=== PATIENT | male | born 1950 | race Caucasian/White ===

== ENCOUNTER 2024-09-08 10:14 | Observation (INO) | payer MEDICARE ==
--- NOTE | 2024-09-08 10:18 | ERPHSYRPT ---
- History of Present Illness Time Seen by Provider: 09/08/24 10:18 Source: patient, family Exam Limitations: no limitations Physician History: This is an obese 74-year-old white male patient of Dr. Baker who presents by private vehicle directly from his primary care physician's office because of concern of pneumonia. Patient arrives by private vehicle with a room air oxygen saturation level of 82%. Immediately, he was placed on supplemental oxygen via nasal cannula and respiratory therapy was consulted. They will be providing him with DuoNeb treatment. Patient has been receiving antibiotic therapy as an outpatient without benefit. I reviewed the office's notes (out side PCP) from today from Dr. Baker's office. The patient has a history of seasonal all ergies, COPD. He is a former smoker of tobacco cigarettes but no longer smokes tobacco. He has no known drug allergies. Patient does have a history of hypertension. He has no documented coronary artery disease and no documented history of congestive heart failure. The patient is not diabetic Timing/Duration: day(s) (5 to 6 days), worse Severity: moderate Associated Symptoms: shortness of breath, weakness, No chest pain Allergies/Adverse Reactions: No Known Drug Allergies Allergy (Verified 09/08/24 10:30) Home Medications: Albuterol 2.5 mg/3 ml Neb [Proventil 2.5 mg/3 ml Neb] 2 puffs PO Q46H 09/08/24 [History] Carvedilol 12.5 mg [Coreg 12.5 mg] 12.5 mg PO BID 09/08/24 [History] Losartan/Hydrochlorothiazide [Losartan-Hctz 50-12.5 mg Tab] 1 tab PO DAILY 09/08/24 [History] Travel Risk - International Travel Have you traveled outside of the country in past 3 weeks: No - Emerging Infectious Disease Are you exhibiting symptoms associated with any current EIDs: Yes Symptoms: Shortness of Breath - Review of Systems Constitutional: Weakness Eyes: No Symptoms Ears, Nose, & Throat: No Symptoms Respiratory: Dyspnea Cardiac: No Symptoms Abdominal/Gastrointestinal: No Symptoms Musculoskeletal: No Symptoms Skin: No Symptoms Neurological: No Symptoms Psychological: No Symptoms Endocrine: No Symptoms Hematologic/Lymphatic: No Symptoms Immunological/Allergic: No Symptoms All Other Systems: Reviewed and Negative - Past Medical History Pertinent Past Medical History: Yes - Nursing Vital Signs Nursing Vital Signs: Initial Vital Signs O2 Sat by Pulse Oximetry 83 L 09/08/24 10:20 Pain Scale Pain Intensity 0 - Physical Exam General Appearance: mild distress, alert, anxiety, obese Eye Exam: PERRL/EOMI, eyes nml inspection Ears, Nose, Throat Exam: normal ENT inspection, moist mucous membranes Neck Exam: normal inspection, non-tender, supple, full range of motion Respiratory Exam: lungs clear, respiratory distress, airway intact, diminished breath sounds (Laterally and diffuse), No chest tenderness Cardiovascular Exam: regular rate/rhythm, normal heart sounds, normal peripheral pulses Gastrointestinal/Abdomen Exam: soft, normal bowel sounds, No tenderness Rectal Exam: not done Back Exam: normal inspection, normal range of motion, No CVA tenderness, No vertebral tenderness Extremity Exam: normal inspection, normal range of motion, pelvis stable Neurologic Exam: alert, oriented x 3, cooperative, snapper on II-XII nml as tested, nml cerebellar function, nml station & gait, sensation nml Skin Exam: normal color, warm, dry Lymphatic Exam: No adenopathy SpO2 Interpretation: hypoxic O2 Delivery: Room Air - Course Nursing assessment & vital signs reviewed: Yes EKG Interpreted by Me: RATE (69), NORMAL AXIS, NORMAL QRS, Other (Short NV interval. QTc is 470. No acute ischemia on today's twelve-lead EKG.) Ordered Tests: Active Orders 24 hr Category Date Time Status Clay Preparation Supervisor STAT Care 09/08/24 10:29 Active EKG-ER Only STAT Care 09/08/24 10:28 Active IV Insertion STAT Care 09/08/24 10:28 Active Oxygen-ED Only Nasal Cannula 4 lpm Care 09/08/24 10:28 Active CHEST 1 VIEW (PORTABLE) Stat Exams 09/08/24 10:29 Completed BLOOD CULTURE Stat Lab 09/08/24 11:08 Received CBC W DIFF Stat Lab 09/08/24 11:02 Completed CMP Stat Lab 09/08/24 11:02 Completed Lactic Acid Stat Lab 09/08/24 10:28 Ordered MAGNESIUM Stat Lab 09/08/24 11:02 Completed Manual Differential NC Stat Lab 09/08/24 11:02 Completed NT PRO BNPII Stat Lab 09/08/24 11:02 Completed TROPONIN Q4H Lab 09/08/24 11:02 Completed TROPONIN Q4H Lab 09/08/24 14:30 Ordered TROPONIN Q4H Lab 09/08/24 18:30 Ordered Respiratory Therapy Assessment DAILY RT 09/08/24 10:30 Active Medication Summary Discontinued Medications Generic Name Dose Route Start Last Admin Trade Name Mireille PRN Reason Stop Dose Admin Albuterol/Ipratropium Confirm 09/08/24 10:26 Ipratropium/Albuterol Sulfate 3 Ml Ampul.Neb Administered 09/08/24 10:27 Dose 3 ml IH .STK-MED ONE Albuterol/Ipratropium 3 ml 09/08/24 10:29 09/08/24 10:31 Ipratropium/Albuterol Sulfate 3 Ml Ampul.Neb IH 09/08/24 10:30 3 ml STAT ONE Administration Methylprednisolone Sodium 0 mg 09/08/24 10:28 09/08/24 11:27 Succinate 125 mg/ Sterile IV 09/08/24 10:29 125 mg Water 2 ml STAT ONE Administration Ceftriaxone Sodium 1 gm in 100 mls @ 200 mls/hr 09/08/24 11:35 09/08/24 12:40 Rocephin 1 Gm / 100 Ml Nacl IV 09/08/24 12:04 Infused STAT ONE Infusion Ceftriaxone Sodium Confirm 09/08/24 11:48 Rocephin 1 Gm / 100 Ml Nacl Administered 09/08/24 11:49 Dose 1 gm in 100 mls @ ud IV .STK-MED ONE Methylprednisolone Sodium Succinate Confirm 09/08/24 11:26 Methylprednis Sod Succ 125 Mg/2 Ml Vial Administered 09/08/24 11:27 Dose 125 mg .ROUTE .STK-MED ONE Potassium Chloride 20 meq 09/08/24 12:40 Potassium Chloride Tab 10 Meq Tab PO 09/08/24 12:41 STAT ONE Sterile Water Confirm 09/08/24 11:26 Water For Injection,Sterile 10 Ml Vial Administered 09/08/24 11:27 Dose 10 ml IJ .STK-MED ONE Lab/Rad Data: Laboratory Result Diagrams 09/08/24 11:02 09/08/24 11:02 Laboratory Results 09/08/24 09/08/24 09/08/24 Range/Units 11:02 11:02 11:02 WBC 5.1 (4.23-9.07) x10^3/uL RBC 4.85 (4.63-6.08) x10^6/uL Hgb 14.5 (13.7-17.5) g/dL Hct 44.8 (40.1-51.0) % MCV 92.4 H (79.0-92.2) fL MCH 29.9 (25.7-32.2) pg MCHC 32.4 (32.3-36.5) g/dL RDW 13.4 (11.6-14.4) % Plt Count 190 (163-337) x10^3/uL MPV 9.7 (9.4-12.4) fL Segmented Neutrophils 74 H (34.0-67.9) % Lymphocytes (Manual) 17 L (21.8-53.1) % Monocytes (Manual) 7 (5.3-12.2) % Eosinophils (Manual) 2 (0.8-7.0) % Platelet Estimate NORMAL (NORMAL) RBC Morphology NORMAL Sodium 140 (135-145) mmol/L Potassium 3.3 L (3.5-5.1) mmol/L Chloride 99 (98-107) mmol/L Carbon Dioxide 32 H (22-30) mmol/L Anion Gap 12.2 (5-15) MEQ/L BUN 17 (9-20) mg/dL Creatinine 0.67 (0.66-1.25) mg/dL Estimated GFR 99.2 ML/MIN Glucose 111 H (74-106) mg/dL Calcium 9.0 (8.4-10.2) mg/dL Magnesium 2.0 (1.6-2.3) mg/dL Total Bilirubin 0.80 (0.2-1.3) mg/dL AST 44 (17-59) U/L ALT 32 (0-50) U/L Alkaline Phosphatase 56 (38-126) U/L Troponin I < 0.012 (0.000-0.033) ng/mL NT-Pro-B Natriuret Pep 27.4 (<300) pg/mL Serum Total Protein 7.4 (6.3-8.2) g/dL Albumin 4.2 (3.5-5.0) g/dL Influenza Type A Ag (NEGATIVE) Influenza Type B Ag (NEGATIVE) RSV (PCR) (NEGATIVE) SARS-CoV-2 (PCR) (NEGATIVE) 09/08/24 Range/Units 11:00 WBC (4.23-9.07) x10^3/uL RBC (4.63-6.08) x10^6/uL Hgb (13.7-17.5) g/dL Hct (40.1-51.0) % MCV (79.0-92.2) fL MCH (25.7-32.2) pg MCHC (32.3-36.5) g/dL RDW (11.6-14.4) % Plt Count (163-337) x10^3/uL MPV (9.4-12.4) fL Segmented Neutrophils (34.0-67.9) % Lymphocytes (Manual) (21.8-53.1) % Monocytes (Manual) (5.3-12.2) % Eosinophils (Manual) (0.8-7.0) % Platelet Estimate (NORMAL) RBC Morphology Sodium (135-145) mmol/L Potassium (3.5-5.1) mmol/L Chloride (98-107) mmol/L Carbon Dioxide (22-30) mmol/L Anion Gap (5-15) MEQ/L BUN (9-20) mg/dL Creatinine (0.66-1.25) mg/dL Estimated GFR ML/MIN Glucose (74-106) mg/dL Calcium (8.4-10.2) mg/dL Magnesium (1.6-2.3) mg/dL Total Bilirubin (0.2-1.3) mg/dL AST (17-59) U/L ALT (0-50) U/L Alkaline Phosphatase (38-126) U/L Troponin I (0.000-0.033) ng/mL NT-Pro-B Natriuret Pep (<300) pg/mL Serum Total Protein (6.3-8.2) g/dL Albumin (3.5-5.0) g/dL Influenza Type A Ag NEGATIVE (NEGATIVE) Influenza Type B Ag NEGATIVE (NEGATIVE) RSV (PCR) NEGATIVE (NEGATIVE) SARS-CoV-2 (PCR) NEGATIVE (NEGATIVE) - Progress Progress: improved, re-examined Progress Note: 09/08/24 10:37 My medical decision making and the assignment of at least moderate complexity and possible high complexity is based on review of the patient's past medical history, review of the patient's medication list, review of the patient's history present illness and physical findings on examination. We also reviewed the patient's drug allergy list. The workup of this patient includes placement of intravenous line, placement of supplemental oxygen via nasal cannula, respiratory therapist evaluation and management, intravenous Solu-Medrol, CBC, CMP, troponin level, BNP level, twelve-lead EKG, viral swabs, monotest, chest x- ray. Differential diagnosis includes but is not limited to upper respiratory infection, pneumonia, viral illness, COPD exacerbation, CHF exacerbation, myocardial infarction, arrhythmias 09/08/24 11:22 Chest x-ray was interpreted by the radiologist and I reviewed the impression. The impression states mild, bibasilar infiltrates, atelectasis and effusions. 09/08/24 12:44 I interpreted the patient's laboratory data results. Based on the laboratory data results there are no acute, emergent medical issues. I did speak with Dr. Noyola. I reviewed the patient history, presenting complaint, physical findings on examination and workup results. The patient will be placed in observation and we will provide the patient with respiratory therapy treatments, intravenous antibiotics if indicated, repeat labs and repeat EKG. Counseled pt/family regarding: lab results, diagnosis, rad results Medical Desision Making - Discussion of managment Care discussed with:: hospitalist Reviewed:: Test results, Need for additional workup - Diagnostic Testing Diagnostic test were ordered, analyzed, and reviewed by me: Yes Radiological Interpretation: Reviewed by me, Teleradiologist Report - Risk of complications The pt has a high risk of morbidity or mortality based on: Decision regarding hospitilization or escalation of hosp level of care - Departure Departure Disposition: Observation Clinical Impression: Bilateral pulmonary infiltrates, Hypokalemia, Hypoxia Condition: Fair Critical Care Time: Yes Critical Care Time(excluding separately billable procedures): Critical 30-74 mins (45) Referrals: DENISSE BAKER MD [Primary Care Provider] - Follow up/PCP as directed
[2024-09-08] MEDS ORDERED: DUONEB 0.5-3 MG/3 ml Neb IH ONE (10:26)
[2024-09-08] MEDS: DUONEB 0.5-3 MG/3 ml Neb IH ONE (10:31)
--- NOTE | 2024-09-08 11:00 | XRAY ---
Indication: Short of breath. Hypoxia. Comparison: None Portable chest demonstrates mild bibasilar infiltrates/atelectasis/effusions. Upper lungs clear. Heart not enlarged. Bony thorax intact with osteopenia and mild degenerative changes.
[2024-09-08 11:15] LABS: Hematocrit 44.8 % (40.1-51.0); Hemoglobin 14.5 g/dL (13.7-17.5); Mean Cell Volume 92.4 fL (79.0-92.2); Mean Corpuscular Hemoglobin 29.9 pg (25.7-32.2); Mean Corpuscular Hgb Concent. 32.4 g/dL (32.3-36.5); Mean Platelet Volume 9.7 fL (9.4-12.4); Platelet Count 190 x10^3/uL (163-337); Red Blood Count 4.85 x10^6/uL (4.63-6.08); Red Cell Distribution Width 13.4 % (11.6-14.4); White Blood Count 5.1 x10^3/uL (4.23-9.07)
[2024-09-08] MEDS ORDERED: Sterile H2O 10 ml IJ ONE (11:26)
[2024-09-08] MEDS ORDERED: solu-MEDROL ONE (11:26)
[2024-09-08] MEDS: solu-MEDROL 125 MG, Sterile H2O 10 ml 2 ML IV ONE (11:27)
[2024-09-08 11:40] LABS: NT PRO BNPII 27.4 pg/mL (<300)
[2024-09-08 11:42] LABS: ALBUMIN 4.2 g/dL (3.5-5.0); ALKALINE PHOSPHATASE 56 U/L (38-126); ANION GAP 12.2 MEQ/L (5-15); BLOOD UREA NITROGEN 17 mg/dL (9-20); CHLORIDE 99 mmol/L (98-107); Carbon Dioxide 32 mmol/L (22-30); Creatinine 1 0.67 mg/dL (0.66-1.25); EST GLOMERULAR FILTRATION RATE 99.2 ML/MIN; Glucose 111 mg/dL (74-106); Potassium 3.3 mmol/L (3.5-5.1); SGOT/AST 44 U/L (17-59); SGPT/ALT 32 U/L (0-50); SODIUM 140 mmol/L (135-145); TROPONIN < 0.012 ng/mL (0.000-0.033); Total Protein 7.4 g/dL (6.3-8.2)
[2024-09-08] MEDS ORDERED: ROCEPHIN 1 GM / 100 ML NaCl 1 GM/100 ML IVPB IV ONE (11:48)
[2024-09-08] MEDS: ROCEPHIN 1 GM / 100 ML NaCl 1 GM/100 ML IVPB IV ONE (11:49)
[2024-09-08 11:51] LABS: INFLUENZA A NEGATIVE (NEGATIVE); INFLUENZA B NEGATIVE (NEGATIVE); RESPIRATORY SYNCTIAL VIRUS NEGATIVE (NEGATIVE); SARS-CoV-2 Xpert Express NEGATIVE (NEGATIVE)
[2024-09-08 12:41] LABS: Eosinophil 2 % (0.8-7.0); Lymphocytes 17 % (21.8-53.1); Monocyte 7 % (5.3-12.2); Neutrophils 74 % (34.0-67.9); Platelet Estimate NORMAL (NORMAL)
[2024-09-08 12:42] LABS: Total Cells Counted 100
[2024-09-08] MEDS ORDERED: Klor Con ONE (12:51)
[2024-09-08] MEDS: Klor Con PO ONE (12:54)
[2024-09-08] MEDS ORDERED: Zofran 4 MG/2 ML VIAL IV PRN (14:09)
[2024-09-08] MEDS ORDERED: TYLENOL 325 MG PO PRN (14:09)
--- NOTE | 2024-09-08 14:47 | PCM.HP ---
History of Present Illness - Chief Complaint Chief Complaint: pneuomia Date: 09/08/24 History of Present Illness: is a 74 year old male with a pmhx of COPD, HTN, and HLD who presented to the ED for evaluation of shortness of breath. Patient reports he has been sick over the past week with a productive cough with green sputum and progressive shortness of breath. He was under the care of his PCP Dr. Roche receiving oral antibiotic with no improvement. Denies fever, cp, abdominal pain, [place], dizziness, N/V/D. Upon arrival to ED patient was hypoxic with spo2 at 83% on arrival. Patient placed on 4L of oxygen. EKG NS with no ST elevation/deviations. CXR with bilateral infiltrates. Lab findings remarkable for hypokalemia. Patient received solumedrol, duonebs, rocephin and potassium in ED. Admit for acute respiratory failure secondary to pneumonia. - Review of Systems Constitutional: No Symptoms Eyes: No Symptoms Ears, Nose, & Throat: No Symptoms Respiratory: Cough, Short Of Breath, Wheezing Cardiac: No Symptoms Abdominal/Gastrointestinal: No Symptoms Genitourinary Symptoms: No Symptoms Musculoskeletal: No Symptoms Skin: No Symptoms Neurological: No Symptoms Psychological: No Symptoms Endocrine: No Symptoms Hematologic/Lymphatic: No Symptoms Immunological/Allergic: No Symptoms Medications & Allergies Home Medications: Home Medication List Albuterol 2.5 mg/3 ml Neb [Proventil 2.5 mg/3 ml Neb] 2 puffs PO Q46H 09/08/24 [History Confirmed 09/08/24] Carvedilol 12.5 mg [Coreg 12.5 mg] 12.5 mg PO BID 09/08/24 [History Confirmed 09/08/24] Losartan/Hydrochlorothiazide [Losartan-Hctz 50-12.5 mg Tab] 1 tab PO DAILY 09/08/24 [History Confirmed 09/08/24] Allergies/Adverse Reactions: Allergies Allergy/AdvReac Type Severity Reaction Status Date / Time No Known Drug Allergies Allergy Verified 09/08/24 10:30 - Past Medical History Past Medical History: Yes Cardiac History: Hypertension Respiratory History: COPD - Past Surgical History Past Surgical History: Yes GI Surgical History: Cholecystectomy Other Surgical History: kidney stone Significant Family History: diabetes - Social History Smoking Status: Former smoker Exposure to second hand smoke: No Alcohol: None Drug Use: none - Social Determinants of Health Will the patient participate in the screening: Yes Do you worry about a steady place to live?: No Do you have any problems with any of the following?: No known problems In the past 12 months,have you had to go without utilities?: No Have you or anyone in your house had to go without enough: No Transportation Issues: No Has anyone in your support network made you feel unsafe?: No - Physical Exam Vital Signs: Vital Signs - 24 hr Temp Pulse Resp BP BP Pulse Ox 09/08/24 14:09 97.6 F 59 L 16 155/73 95 09/08/24 13:00 62 18 110/59 97 09/08/24 12:30 114/67 97 09/08/24 12:00 104/64 96 09/08/24 11:47 110/67 96 09/08/24 11:40 90 L 09/08/24 11:30 89 L 09/08/24 11:20 89 L 09/08/24 11:10 90 L 09/08/24 11:01 90 L 09/08/24 10:32 119/66 88 L 09/08/24 10:31 77 22 98 09/08/24 10:23 71 132/70 132/70 98 09/08/24 10:20 83 L General Appearance: no apparent distress Neurologic Exam: alert, oriented x 3, cooperative Eye Exam: PERRL/EOMI Ears, Nose, Throat Exam: normal ENT inspection Neck Exam: normal inspection Respiratory Exam: diminished breath sounds, wheezing Cardiovascular Exam: regular rate/rhythm, normal heart sounds Gastrointestinal/Abdomen Exam: soft, normal bowel sounds Rectal Exam: deferred Back Exam: normal inspection Extremity Exam: normal inspection Skin Exam: normal color Results - Labs Lab/Micro Results: Lab Results-Last 24 Hours 09/08/24 09/08/24 09/08/24 Range/Units 11:00 11:02 11:02 WBC 5.1 (4.23-9.07) x10^3/uL RBC 4.85 (4.63-6.08) x10^6/uL Hgb 14.5 (13.7-17.5) g/dL Hct 44.8 (40.1-51.0) % MCV 92.4 H (79.0-92.2) fL MCH 29.9 (25.7-32.2) pg MCHC 32.4 (32.3-36.5) g/dL RDW 13.4 (11.6-14.4) % Plt Count 190 (163-337) x10^3/uL MPV 9.7 (9.4-12.4) fL Segmented Neutrophils 74 H (34.0-67.9) % Lymphocytes (Manual) 17 L (21.8-53.1) % Monocytes (Manual) 7 (5.3-12.2) % Eosinophils (Manual) 2 (0.8-7.0) % Platelet Estimate NORMAL (NORMAL) RBC Morphology NORMAL Sodium (135-145) mmol/L Potassium (3.5-5.1) mmol/L Chloride (98-107) mmol/L Carbon Dioxide (22-30) mmol/L Anion Gap (5-15) MEQ/L BUN (9-20) mg/dL Creatinine (0.66-1.25) mg/dL Estimated GFR ML/MIN Glucose (74-106) mg/dL Calcium (8.4-10.2) mg/dL Magnesium 2.0 (1.6-2.3) mg/dL Total Bilirubin (0.2-1.3) mg/dL AST (17-59) U/L ALT (0-50) U/L Alkaline Phosphatase (38-126) U/L Troponin I (0.000-0.033) ng/mL NT-Pro-B Natriuret Pep 27.4 (<300) pg/mL Serum Total Protein (6.3-8.2) g/dL Albumin (3.5-5.0) g/dL Influenza Type A Ag NEGATIVE (NEGATIVE) Influenza Type B Ag NEGATIVE (NEGATIVE) RSV (PCR) NEGATIVE (NEGATIVE) SARS-CoV-2 (PCR) NEGATIVE (NEGATIVE) 09/08/24 Range/Units 11:02 WBC (4.23-9.07) x10^3/uL RBC (4.63-6.08) x10^6/uL Hgb (13.7-17.5) g/dL Hct (40.1-51.0) % MCV (79.0-92.2) fL MCH (25.7-32.2) pg MCHC (32.3-36.5) g/dL RDW (11.6-14.4) % Plt Count (163-337) x10^3/uL MPV (9.4-12.4) fL Segmented Neutrophils (34.0-67.9) % Lymphocytes (Manual) (21.8-53.1) % Monocytes (Manual) (5.3-12.2) % Eosinophils (Manual) (0.8-7.0) % Platelet Estimate (NORMAL) RBC Morphology Sodium 140 (135-145) mmol/L Potassium 3.3 L (3.5-5.1) mmol/L Chloride 99 (98-107) mmol/L Carbon Dioxide 32 H (22-30) mmol/L Anion Gap 12.2 (5-15) MEQ/L BUN 17 (9-20) mg/dL Creatinine 0.67 (0.66-1.25) mg/dL Estimated GFR 99.2 ML/MIN Glucose 111 H (74-106) mg/dL Calcium 9.0 (8.4-10.2) mg/dL Magnesium (1.6-2.3) mg/dL Total Bilirubin 0.80 (0.2-1.3) mg/dL AST 44 (17-59) U/L ALT 32 (0-50) U/L Alkaline Phosphatase 56 (38-126) U/L Troponin I < 0.012 (0.000-0.033) ng/mL NT-Pro-B Natriuret Pep (<300) pg/mL Serum Total Protein 7.4 (6.3-8.2) g/dL Albumin 4.2 (3.5-5.0) g/dL Influenza Type A Ag (NEGATIVE) Influenza Type B Ag (NEGATIVE) RSV (PCR) (NEGATIVE) SARS-CoV-2 (PCR) (NEGATIVE) - Radiology Impressions Radiology Exams & Impressions: Radiology Procedures Category Date Time Status CHEST 1 VIEW (PORTABLE) Stat Exams 09/08/24 10:29 Completed - Other Procedures and Tests Respiratory Therapy 09/08/24 14:09 EKG REPEAT IN AM Oxygen Nasal Cannula 2 lpm Respiratory Therapy Consult ONCE Assessment/Plan (1) Pneumonia Current Visit: Yes Status: Acute Assessment & Plan: -cxr reviewed with bilateral infiltrates -Supplemental oxygen with goal spo2 >91% - currently on 4L -Solu-medrol 40mg BID -RT eval -DuoNebs -Ceftriaxone/azithromycin -WBC reviewed and WNL - trend -sputum culture Code(s): J18.9 - PNEUMONIA, UNSPECIFIED ORGANISM (2) Acute respiratory failure with hypoxia Current Visit: Yes Status: Acute Assessment & Plan: -see pneumonia above Code(s): J96.01 - ACUTE RESPIRATORY FAILURE WITH HYPOXIA (3) COPD exacerbation Current Visit: Yes Status: Acute Assessment & Plan: -see pneumonia above -continue home meds Code(s): J44.1 - CHRONIC OBSTRUCTIVE PULMONARY DISEASE W (ACUTE) EXACERBATION (4) Hypokalemia Current Visit: Yes Status: Acute Assessment & Plan: -Potassium reviewed at 3.3- 40meq given in ED -will recheck -tele -Monitor renal/lytes daily Code(s): E87.6 - HYPOKALEMIA (5) HTN (hypertension) Current Visit: Yes Status: Acute Assessment & Plan: -BP stable- continue home meds Code(s): I10 - ESSENTIAL (PRIMARY) HYPERTENSION (6) HLD (hyperlipidemia) Current Visit: Yes Status: Acute Assessment & Plan: -continue home regimen VTE: lovenox PPI: Protonix Dispo: 1-2 days Code(s): E78.5 - HYPERLIPIDEMIA, UNSPECIFIED
[2024-09-08] MEDS ORDERED: PROVENTIL 2.5 MG/3 ML NEB IH PRN ×2 (15:00→15:14)
[2024-09-08] MEDS: Zithromax 500 MG/ 250 ML NaCl Premix 500 MG/250 ML IVPB IV SCH (16:13)
[2024-09-08] MEDS: DUONEB 0.5-3 MG/3 ml Neb IH SCH (18:40)
[2024-09-08] MEDS: COREG 12.5 MG PO SCH (22:23)
--- NOTE | 2024-09-09 05:22 | PCM.NOTE ---
Date and Time: 09/09/24520 Subjective Assessment: is a 74 year old male with a pmhx of COPD, HTN, and HLD who presented to the ED for evaluation of shortness of breath. Patient reports he has been sick over the past week with a productive cough with green sputum and progressive shortness of breath. He was under the care of his PCP Dr. Roche receiving oral antibiotic with no improvement. Denies fever, cp, abdominal pain, BULLOCK, dizziness, N/V/D. Upon arrival to ED patient was hypoxic with spo2 at 83% on arrival. Patient placed on 4L of oxygen. EKG NS with no ST elevation/deviations. CXR with bilateral infiltrates. Lab findings remarkable for hypokalemia. Patient received solumedrol, duonebs, rocephin and potassium in ED. Admit for acute respiratory failure secondary to pneumonia. Objective Data Vital Signs: Vital Signs - 24 hr Temp Pulse Resp BP BP Pulse Ox 09/09/24 04:00 97.3 F 72 18 119/66 95 09/08/24 23:52 97.8 F 70 18 112/56 94 L 09/08/24 20:00 97.5 F 84 21 101/59 93 L 09/08/24 18:40 85 18 91 L 09/08/24 16:14 97.6 F 59 L 16 155/73 96 09/08/24 15:57 69 18 94 L 09/08/24 15:48 69 18 94 L 09/08/24 14:09 97.6 F 59 L 16 155/73 95 09/08/24 13:00 62 18 110/59 97 09/08/24 12:30 114/67 97 09/08/24 12:00 104/64 96 09/08/24 11:47 110/67 96 09/08/24 11:40 90 L 09/08/24 11:30 89 L 09/08/24 11:20 89 L 09/08/24 11:10 90 L 09/08/24 11:01 90 L 09/08/24 10:32 119/66 88 L 09/08/24 10:31 77 22 98 09/08/24 10:23 71 132/70 132/70 98 09/08/24 10:20 83 L Pain Assessment - Last Documented Pain Intensity 0 Intake and Output: Intake & Output 09/06/24 09/07/24 09/08/24 09/09/24 11:59 11:59 11:59 11:59 Intake Total 1960 Balance 1959 Weight 117.934 kg 108.4 kg Lab Results: Lab Results-Last 24 Hours 09/08/24 09/08/24 09/08/24 Range/Units 11:00 11:02 11:02 WBC 5.1 (4.23-9.07) x10^3/uL RBC 4.85 (4.63-6.08) x10^6/uL Hgb 14.5 (13.7-17.5) g/dL Hct 44.8 (40.1-51.0) % MCV 92.4 H (79.0-92.2) fL MCH 29.9 (25.7-32.2) pg MCHC 32.4 (32.3-36.5) g/dL RDW 13.4 (11.6-14.4) % Plt Count 190 (163-337) x10^3/uL MPV 9.7 (9.4-12.4) fL Segmented Neutrophils 74 H (34.0-67.9) % Lymphocytes (Manual) 17 L (21.8-53.1) % Monocytes (Manual) 7 (5.3-12.2) % Eosinophils (Manual) 2 (0.8-7.0) % Platelet Estimate NORMAL (NORMAL) RBC Morphology NORMAL Sodium (135-145) mmol/L Potassium (3.5-5.1) mmol/L Chloride (98-107) mmol/L Carbon Dioxide (22-30) mmol/L Anion Gap (5-15) MEQ/L BUN (9-20) mg/dL Creatinine (0.66-1.25) mg/dL Estimated GFR ML/MIN Glucose (74-106) mg/dL Calcium (8.4-10.2) mg/dL Magnesium 2.0 (1.6-2.3) mg/dL Total Bilirubin (0.2-1.3) mg/dL AST (17-59) U/L ALT (0-50) U/L Alkaline Phosphatase (38-126) U/L Troponin I (0.000-0.033) ng/mL NT-Pro-B Natriuret Pep 27.4 (<300) pg/mL Serum Total Protein (6.3-8.2) g/dL Albumin (3.5-5.0) g/dL Influenza Type A Ag NEGATIVE (NEGATIVE) Influenza Type B Ag NEGATIVE (NEGATIVE) RSV (PCR) NEGATIVE (NEGATIVE) SARS-CoV-2 (PCR) NEGATIVE (NEGATIVE) 09/08/24 09/08/24 09/08/24 Range/Units 11:02 14:45 18:25 WBC (4.23-9.07) x10^3/uL RBC (4.63-6.08) x10^6/uL Hgb (13.7-17.5) g/dL Hct (40.1-51.0) % MCV (79.0-92.2) fL MCH (25.7-32.2) pg MCHC (32.3-36.5) g/dL RDW (11.6-14.4) % Plt Count (163-337) x10^3/uL MPV (9.4-12.4) fL Segmented Neutrophils (34.0-67.9) % Lymphocytes (Manual) (21.8-53.1) % Monocytes (Manual) (5.3-12.2) % Eosinophils (Manual) (0.8-7.0) % Platelet Estimate (NORMAL) RBC Morphology Sodium 140 (135-145) mmol/L Potassium 3.3 L (3.5-5.1) mmol/L Chloride 99 (98-107) mmol/L Carbon Dioxide 32 H (22-30) mmol/L Anion Gap 12.2 (5-15) MEQ/L BUN 17 (9-20) mg/dL Creatinine 0.67 (0.66-1.25) mg/dL Estimated GFR 99.2 ML/MIN Glucose 111 H (74-106) mg/dL Calcium 9.0 (8.4-10.2) mg/dL Magnesium (1.6-2.3) mg/dL Total Bilirubin 0.80 (0.2-1.3) mg/dL AST 44 (17-59) U/L ALT 32 (0-50) U/L Alkaline Phosphatase 56 (38-126) U/L Troponin I < 0.012 < 0.012 < 0.012 (0.000-0.033) ng/mL NT-Pro-B Natriuret Pep (<300) pg/mL Serum Total Protein 7.4 (6.3-8.2) g/dL Albumin 4.2 (3.5-5.0) g/dL Influenza Type A Ag (NEGATIVE) Influenza Type B Ag (NEGATIVE) RSV (PCR) (NEGATIVE) SARS-CoV-2 (PCR) (NEGATIVE) Radiology Exams: Radiology Procedures Category Date Time Status CHEST 1 VIEW (PORTABLE) Stat Exams 09/08/24 10:29 Completed Multi-Disciplinary Progress Notes: Multi-Disciplinary Progress Notes 09/09/24 01:35 Respiratory Note by Marie Zuniga RT at bedside for scheduled 1am tx. Pt states he is fine and does not wish to take neb tx at this time. Initialized on 09/09/24 01:35 - END OF NOTE Assessment/Plan (1) Pneumonia Current Visit: Yes Status: Acute Assessment & Plan: -cxr reviewed with bilateral infiltrates -Supplemental oxygen with goal spo2 >91% - currently on 4L -Solu-medrol 40mg BID -RT eval -DuoNebs -Ceftriaxone/azithromycin -WBC reviewed and WNL - trend -sputum culture Code(s): J18.9 - PNEUMONIA, UNSPECIFIED ORGANISM (2) Acute respiratory failure with hypoxia Current Visit: Yes Status: Acute Assessment & Plan: -see pneumonia above Code(s): J96.01 - ACUTE RESPIRATORY FAILURE WITH HYPOXIA (3) COPD exacerbation Current Visit: Yes Status: Acute Assessment & Plan: -see pneumonia above -continue home meds Code(s): J44.1 - CHRONIC OBSTRUCTIVE PULMONARY DISEASE W (ACUTE) EXACERBATION (4) Hypokalemia Current Visit: Yes Status: Acute Assessment & Plan: -Potassium reviewed at 3.3- 40meq given in ED -will recheck -tele -Monitor renal/lytes daily Code(s): E87.6 - HYPOKALEMIA (5) HTN (hypertension) Current Visit: Yes Status: Acute Assessment & Plan: -BP stable- continue home meds Code(s): I10 - ESSENTIAL (PRIMARY) HYPERTENSION (6) HLD (hyperlipidemia) Current Visit: Yes Status: Acute Assessment & Plan: -continue home regimen VTE: lovenox PPI: Protonix Dispo: 1-2 days Code(s): J18.9 - PNEUMONIA, UNSPECIFIED ORGANISM (2) Acute respiratory failure with hypoxia Current Visit: Yes Status: Acute Code(s): J96.01 - ACUTE RESPIRATORY FAILURE WITH HYPOXIA (3) COPD exacerbation Current Visit: Yes Status: Acute Code(s): J44.1 - CHRONIC OBSTRUCTIVE PULMONARY DISEASE W (ACUTE) EXACERBATION (4) Hypokalemia Current Visit: Yes Status: Acute Code(s): E87.6 - HYPOKALEMIA (5) HTN (hypertension) Current Visit: Yes Status: Acute Code(s): I10 - ESSENTIAL (PRIMARY) HYPERTENSION (6) HLD (hyperlipidemia) Current Visit: Yes Status: Acute Code(s): E78.5 - HYPERLIPIDEMIA, UNSPECIFIED
[2024-09-09 05:54] LABS: Hematocrit 42.5 % (40.1-51.0); Hemoglobin 13.4 g/dL (13.7-17.5); Mean Corpuscular Hemoglobin 29.3 pg (25.7-32.2); Mean Corpuscular Hgb Concent. 31.5 g/dL (32.3-36.5); Mean Platelet Volume 10.2 fL (9.4-12.4); Platelet Count 206 x10^3/uL (163-337); Red Blood Count 4.57 x10^6/uL (4.63-6.08); Red Cell Distribution Width 13.4 % (11.6-14.4); White Blood Count 5.5 x10^3/uL (4.23-9.07)
[2024-09-09 06:18] LABS: ALBUMIN 3.9 g/dL (3.5-5.0); ANION GAP 11.5 MEQ/L (5-15); BILIRUBIN,TOTAL 0.5 mg/dL (0.2-1.3); Calcium 8.8 mg/dL (8.4-10.2); Creatinine 1 0.69 mg/dL (0.66-1.25); EST GLOMERULAR FILTRATION RATE 98.3 ML/MIN; NT PRO BNPII 66.6 pg/mL (<300); Potassium 3.6 mmol/L (3.5-5.1); Total Protein 7.2 g/dL (6.3-8.2)
[2024-09-09 07:15] LABS: Lymphocytes 15 % (21.8-53.1); Monocyte 4 % (5.3-12.2); Neutrophils 81 % (34.0-67.9); Platelet Estimate NORMAL (NORMAL); Total Cells Counted 100
[2024-09-09 08:44] VITALS: O2SAT 91
[2024-09-09] MEDS: ROCEPHIN 1 GM / 100 ML NaCl 1 GM/100 ML IVPB IV SCH (09:10)
[2024-09-09] MEDS: Cozaar 50 MG PO SCH (09:11)
[2024-09-09] MEDS: DELTASONE 20 MG PO SCH (09:11)
[2024-09-09] MEDS: hydroDIURIL 25 MG PO SCH (09:14)
[2024-09-09] MEDS: Protonix 40MG Tablet PO SCH (09:14)
--- NOTE | 2024-09-09 09:54 | PCM.DS ---
Discharge Summary Date of Admission: 09/08/24 13:57 Date of Discharge: 09/09/24 Admitting Physician: TIGIST LIANG MD Primary Care Provider: DENISSE BAKER Allergies Allergies No Known Drug Allergies Allergy (Verified 09/08/24 16:13) Hospital Summary - Hospital Course Hospital Course: is a 74 year old male with a pmhx of COPD, HTN, and HLD who presented to the ED for evaluation of shortness of breath. Patient reports he has been sick over the past week with a productive cough with green sputum and progressive shortness of breath. He was under the care of his PCP Dr. Baker receiving oral antibiotic with no improvement. Denies fever, cp, abdominal pain, BULLOCK, dizziness, N/V/D. Upon arrival to ED patient was hypoxic with spo2 at 83% on arrival. Patient placed on 4L of oxygen. EKG NS with no ST elevation/deviations. CXR with bilateral infiltrates. Lab findings remarkable for hypokalemia. Patient received solumedrol, duonebs, rocephin and potassium in ED. Admitted for acute respiratory failure secondary to pneumonia. No overnight events. Patient reports cough and dyspnea improved and is requesting discharge home today. He does qu alify for home oxygen and we will make the arrangements for delivery. Patient has home nebulizer machine and will continue Nebs as needed at home. Will continue patient on cefuroxime and prednisone. Patient agreeable to plan and stable for discharge once oxygen arrange. Discharge Note New Diagnosis: Pneumonia New Medications: cefuroxime/prednisone Follow Up: PCP I spent 35 minutes [id number] with the patient on the day of discharge performing discharge exam, discussing hospital stay and discharge instructions with patient and caregivers, preparation of discharge records, prescriptions & referral forms and addressing any questions/concerns the patient had as documented above. - Vitals & Intake/Output Vital Signs: Vital Signs Temperature 96.3 F 09/09/24 07:05 Pulse Rate 64 09/09/24 07:05 Respiratory Rate 18 09/09/24 07:05 Blood Pressure 123/61 09/09/24 07:05 O2 Sat by Pulse Oximetry 91 L 09/09/24 08:43 Intake & Output: Intake & Output 09/06/24 09/07/24 09/08/24 09/09/24 11:59 11:59 11:59 11:59 Intake Total 2240 Balance 2240 Weight 117.934 kg 108.4 kg - Lab Result Diagrams: 09/09/24 05:09 09/09/24 05:09 Lab Results-Last 24 Hrs: Lab Results-Last 24 Hours 09/08/24 09/08/24 09/08/24 Range/Units 11:00 11:02 11:02 WBC 5.1 (4.23-9.07) x10^3/uL RBC 4.85 (4.63-6.08) x10^6/uL Hgb 14.5 (13.7-17.5) g/dL Hct 44.8 (40.1-51.0) % MCV 92.4 H (79.0-92.2) fL MCH 29.9 (25.7-32.2) pg MCHC 32.4 (32.3-36.5) g/dL RDW 13.4 (11.6-14.4) % Plt Count 190 (163-337) x10^3/uL MPV 9.7 (9.4-12.4) fL Segmented Neutrophils 74 H (34.0-67.9) % Lymphocytes (Manual) 17 L (21.8-53.1) % Monocytes (Manual) 7 (5.3-12.2) % Eosinophils (Manual) 2 (0.8-7.0) % Platelet Estimate NORMAL (NORMAL) RBC Morphology NORMAL Sodium (135-145) mmol/L Potassium (3.5-5.1) mmol/L Chloride (98-107) mmol/L Carbon Dioxide (22-30) mmol/L Anion Gap (5-15) MEQ/L BUN (9-20) mg/dL Creatinine (0.66-1.25) mg/dL Estimated GFR ML/MIN Glucose (74-106) mg/dL Calcium (8.4-10.2) mg/dL Magnesium 2.0 (1.6-2.3) mg/dL Total Bilirubin (0.2-1.3) mg/dL AST (17-59) U/L ALT (0-50) U/L Alkaline Phosphatase (38-126) U/L Troponin I (0.000-0.033) ng/mL NT-Pro-B Natriuret Pep 27.4 (<300) pg/mL Serum Total Protein (6.3-8.2) g/dL Albumin (3.5-5.0) g/dL Influenza Type A Ag NEGATIVE (NEGATIVE) Influenza Type B Ag NEGATIVE (NEGATIVE) RSV (PCR) NEGATIVE (NEGATIVE) SARS-CoV-2 (PCR) NEGATIVE (NEGATIVE) 09/08/24 09/08/24 09/08/24 Range/Units 11:02 14:45 18:25 WBC (4.23-9.07) x10^3/uL RBC (4.63-6.08) x10^6/uL Hgb (13.7-17.5) g/dL Hct (40.1-51.0) % MCV (79.0-92.2) fL MCH (25.7-32.2) pg MCHC (32.3-36.5) g/dL RDW (11.6-14.4) % Plt Count (163-337) x10^3/uL MPV (9.4-12.4) fL Segmented Neutrophils (34.0-67.9) % Lymphocytes (Manual) (21.8-53.1) % Monocytes (Manual) (5.3-12.2) % Eosinophils (Manual) (0.8-7.0) % Platelet Estimate (NORMAL) RBC Morphology Sodium 140 (135-145) mmol/L Potassium 3.3 L (3.5-5.1) mmol/L Chloride 99 (98-107) mmol/L Carbon Dioxide 32 H (22-30) mmol/L Anion Gap 12.2 (5-15) MEQ/L BUN 17 (9-20) mg/dL Creatinine 0.67 (0.66-1.25) mg/dL Estimated GFR 99.2 ML/MIN Glucose 111 H (74-106) mg/dL Calcium 9.0 (8.4-10.2) mg/dL Magnesium (1.6-2.3) mg/dL Total Bilirubin 0.80 (0.2-1.3) mg/dL AST 44 (17-59) U/L ALT 32 (0-50) U/L Alkaline Phosphatase 56 (38-126) U/L Troponin I < 0.012 < 0.012 < 0.012 (0.000-0.033) ng/mL NT-Pro-B Natriuret Pep (<300) pg/mL Serum Total Protein 7.4 (6.3-8.2) g/dL Albumin 4.2 (3.5-5.0) g/dL Influenza Type A Ag (NEGATIVE) Influenza Type B Ag (NEGATIVE) RSV (PCR) (NEGATIVE) SARS-CoV-2 (PCR) (NEGATIVE) 09/09/24 09/09/24 Range/Units 05:09 05:09 WBC 5.5 (4.23-9.07) x10^3/uL RBC 4.57 L (4.63-6.08) x10^6/uL Hgb 13.4 L (13.7-17.5) g/dL Hct 42.5 (40.1-51.0) % MCV 93.0 H (79.0-92.2) fL MCH 29.3 (25.7-32.2) pg MCHC 31.5 L (32.3-36.5) g/dL RDW 13.4 (11.6-14.4) % Plt Count 206 (163-337) x10^3/uL MPV 10.2 (9.4-12.4) fL Segmented Neutrophils 81 H (34.0-67.9) % Lymphocytes (Manual) 15 L (21.8-53.1) % Monocytes (Manual) 4 L (5.3-12.2) % Eosinophils (Manual) (0.8-7.0) % Platelet Estimate NORMAL (NORMAL) RBC Morphology NORMAL Sodium 140 (135-145) mmol/L Potassium 3.6 (3.5-5.1) mmol/L Chloride 99 (98-107) mmol/L Carbon Dioxide 33 H (22-30) mmol/L Anion Gap 11.5 (5-15) MEQ/L BUN 19 (9-20) mg/dL Creatinine 0.69 (0.66-1.25) mg/dL Estimated GFR 98.3 ML/MIN Glucose 170 H (74-106) mg/dL Calcium 8.8 (8.4-10.2) mg/dL Magnesium (1.6-2.3) mg/dL Total Bilirubin 0.50 (0.2-1.3) mg/dL AST 31 (17-59) U/L ALT 29 (0-50) U/L Alkaline Phosphatase 56 (38-126) U/L Troponin I (0.000-0.033) ng/mL NT-Pro-B Natriuret Pep 66.6 (<300) pg/mL Serum Total Protein 7.2 (6.3-8.2) g/dL Albumin 3.9 (3.5-5.0) g/dL Influenza Type A Ag (NEGATIVE) Influenza Type B Ag (NEGATIVE) RSV (PCR) (NEGATIVE) SARS-CoV-2 (PCR) (NEGATIVE) - Radiology Exams Ordered Rad Exams-Entire Visit: Radiology Procedures Category Date Time Status CHEST 1 VIEW (PORTABLE) Stat Exams 09/08/24 10:29 Completed - Procedures and Test Procedures and Tests throughout Hospitalization: Therapy Orders & Screens 09/08/24 10:30 Respiratory Therapy Assessment DAILY Comment: 09/08/24 14:09 EKG REPEAT IN AM Comment: Oxygen Nasal Cannula 2 lpm Comment: Respiratory Therapy Consult ONCE Comment: Reason For Exam: 09/08/24 16:29 RT Screen per Nursing Assess ONCE Comment: Protocol Order Physician Instructions: Greater than 3 points order RT Admission Screen Reason For Exam: Triggered on Admission Diagnosis: PNE Diagnosis: PNE Pneumonia: Yes Home O2: No Asthma: No CHF: No Home CPAP/BIPAP: No Home Nebs/MDI: Yes Total Points: 8 09/09/24 07:41 Qualify for Home Oxygen TODAY Comment: Diagnosis: PNE Discharge Exam General Appearance: no apparent distress Neurologic Exam: alert, oriented x 3, cooperative Eye Exam: PERRL Ears, Nose, Throat Exam: normal ENT inspection Neck Exam: normal inspection Respiratory Exam: diminished breath sounds, wheezing Cardiovascular Exam: regular rate/rhythm, normal heart sounds Gastrointestinal/Abdomen Exam: soft, normal bowel sounds Male Genitalia Exam: deferred Rectal Exam: deferred Back Exam: normal inspection Extremity Exam: normal inspection Skin Exam: normal color Final Diagnosis/Problem List - Final Discharge Diagnosis/Problem (1) Pneumonia Current Visit: Yes Status: Acute Code(s): J18.9 - PNEUMONIA, UNSPECIFIED ORGANISM (2) Acute respiratory failure with hypoxia Current Visit: Yes Status: Resolved Code(s): J96.01 - ACUTE RESPIRATORY FAILURE WITH HYPOXIA (3) COPD exacerbation Current Visit: Yes Status: Acute Code(s): J44.1 - CHRONIC OBSTRUCTIVE PULMONARY DISEASE W (ACUTE) EXACERBATION (4) Hypokalemia Current Visit: Yes Status: Resolved Code(s): E87.6 - HYPOKALEMIA (5) HTN (hypertension) Current Visit: Yes Status: Chronic Code(s): I10 - ESSENTIAL (PRIMARY) HYPER TENSION (6) HLD (hyperlipidemia) Current Visit: Yes Status: Chronic Code(s): E78.5 - HYPERLIPIDEMIA, UNS PECIFIED - Discharge Discharge Date: 09/09/24 Disposition: Home, Self-Care Condition: Fair Prescriptions: New cefuroxime axetiL [Cefuroxime] 500 mg PO BID 7 Days #14 tablet Prednisone 20 mg [Deltasone 20 mg] 20 mg PO BID 5 Days #10 tablet PANTOPRAZOLE 40 mg Tablet [Protonix 40MG Tablet] 40 mg PO DAILY 30 Days #30 tablet Continue Carvedilol 12.5 mg [Coreg 12.5 mg] 12.5 mg PO BID Losartan/Hydrochlorothiazide [Losartan-Hctz 50-12.5 mg Tab] 1 tab PO DAILY Albuterol 2.5 mg/3 ml Neb [Proventil 2.5 mg/3 ml Neb] 2 puffs PO Q46H Follow up with: DENISSE BAKER MD [Primary Care Provider] -
[2024-09-09] MEDS ORDERED: NON-FORMULARY ITEM (Losartan/Hydrochlorothiazide [Losartan-Hctz 50-12.5 Mg Tab] 1 EACH Tab PO SCH (10:00)
[2024-09-09] MEDS: ENOXAPARIN SODIUM SQ SCH (10:23)
[2024-09-09 12:00] VITALS: BP 135/64; PULSE 58; RESP 19; TEMP 97.5
== END 2024-09-09 11:56 | disposition home or self-care (01) ==
LOC: EDSEX 10:14 → ED 10:14 → MED SURG 13:57
PROVIDERS: ADMIT Internal Medicine; ATTEND Internal Medicine
DX: J18.9 Pneumonia, unspecified organism (principal); J96.01 Acute respiratory failure with hypoxia; J44.1 Chronic obstructive pulmonary disease with (acute) exacerbation; E87.6 Hypokalemia; I10 Essential (primary) hypertension; E78.5 Hyperlipidemia, unspecified; Z79.899 Other long term (current) drug therapy
CPT/HCPCS: 0241U; 36415; 71045; 80053; 83735; 83880; 84484; 85025; 87040; 93005; 93041; 94640; 94760; 96365; 96374; 99291; G0378; Q3014; 99285; J0456; J0696; J2919; A9270-GY